=== PATIENT | male | born 1965 | race Caucasian/White ===

== ENCOUNTER 2019-05-13 09:51 | Day surgery (SDC) | payer OTHER ==
[2019-05-12 10:49] LABS: BASOPHILS # (AUTO) 0.06 x10^3/uL (0-0.1); BASOPHILS % (AUTO) 1 % (0-1); EOSINOPHILS # (AUTO) 0.08 x10^3/uL (0-0.4); EOSINOPHILS % (AUTO) 2 % (1-7); LYMPHOCYTES # (AUTO) 1.77 x10^3/uL (1-3.4); LYMPHOCYTES % (AUTO) 36 % (22-44); MD NO; MEAN CORPUSCULAR HEMOGLOBIN 31.5 pg (27.5-34.5); MEAN CORPUSCULAR HGB CONC 33.9 g/dL (33.2-36.2); MEAN CORPUSCULAR VOLUME 93.1 fL (81-97); MONOCYTES # (AUTO) 0.29 x10^3/uL (0.2-0.8); MONOCYTES % (AUTO) 6 % (2-9); NEUTROPHILS # (AUTO) 2.74 x10^3/uL (1.8-6.8); NEUTROPHILS % (AUTO) 56 % (42-75); PLATELET COUNT 306 x10^3/uL (130-400); RED BLOOD COUNT 4.76 x10^6/uL (4.38-5.82); RED CELL DISTRIBUTION WIDTH 13.5 % (9.4-14.8)
[2019-05-12 10:59] LABS: ANION GAP 8 mmol/L (5-15); CALCIUM 9.5 mg/dL (8.5-10.1); CHLORIDE 106 mmol/L (98-107); CREATININE 1.21 mg/dL (0.7-1.3)
[2019-05-12 13:41] LABS: INTERNATIONAL NORMALIZED RATIO 0.93 (0.93-1.1); PROTHROMBIN TIME 9.8 Seconds (9.6-11.5)
[~2019-05-13] VITALS: Ht 182.9 cm; Wt 75.9 kg
[~2019-05-13 09:51] MED LIST: ACETAMINOPHEN 650 MG/20.3 ML UDC PO PRN; BISACODYL 10 MG SUPP PR PRN; CEFAZOLIN 1,000 MG ONE; DIPHENHYDRAMINE 25 MG CAPSULE PO PRN; EPINEPHRINE 1 MG/ML, 1ML ONE; FENTANYL PF 250 MCG/5ML ONE; GLYCOPYRROLATE 0.2MG/1ML, 5ML ONE; HYDROcodone/APAP 5/325 TABLET PO PRN; HYDROmorphone 1 MG/ML, 1ML INJ IV PRN; KETOROLAC 60 MG/2 ML ONE; MAGNESIUM HYDROXIDE 8%, 30ML UDC PO PRN; MIDAZOLAM 1 MG/ML, 2ML ONE; NEOSTIGMINE 1 MG/ML, 10ML ONE; ONDANSETRON 2MG/ML, 2ML IV PRN; ONDANSETRON 4 MG TABLET PO PRN; OXYcodone IR 5MG TABLET PO PRN; PROPOFOL 10 MG/ML, 20ML ONE; ROCURONIUM 10MG/ML,5ML ONE; ROPIvacaine/PF 0.2%, 20 ML ONE; ROPIvacaine/PF 0.5%, 20 ML ONE; SENNA/DOCUSATE TABLET PO PRN; SODIUM CHLORIDE 0.9% 100 ML ONE; TRANEXAMIC ACID 100 MG/ML, 10ML ONE; VANCOMYCIN 1,000 MG ONE; ZOLP10TA PO; ZOLPIDEM 10MG TABLET PO PRN; ZOLPIDEM 5MG TABLET PO PRN
[2019-05-13 10:16] VITALS: BP 110/77
[2019-05-13] MEDS ORDERED: LACTATED RINGERS 1,000 ML IV SCH (10:18)
[2019-05-13] MEDS ORDERED: ACETAMINOPHEN 500 MG TABLET PO ONE (10:30)
[2019-05-13] MEDS ORDERED: GABAPENTIN 300 MG CAPSULE PO ONE (10:30)
[2019-05-13] MEDS ORDERED: TRANEXAMIC ACID 100 MG/ML, 10ML ONE ×2 (10:44)
[2019-05-13] MEDS ORDERED: ACETAMINOPHEN 500 MG TABLET ONE (10:44)
[2019-05-13] MEDS ORDERED: GABAPENTIN 300 MG CAPSULE ONE (10:45)
[2019-05-13] MEDS ORDERED: LABETALOL 5MG/ML, 20ML IV PRN (11:00)
[2019-05-13] MEDS ORDERED: HYDROmorphone 1 MG/ML, 1ML INJ IVPush PRN (11:00)
[2019-05-13] MEDS ORDERED: hydrALAzine 20 MG/ML, 1ML IV PRN (11:00)
[2019-05-13] MEDS ORDERED: FENTANYL PF 100 MCG/2ML IV PRN (11:00)
[2019-05-13] MEDS ORDERED: MORPHINE SULFATE 4 MG/ML, 1ML IVPush PRN (11:00)
[2019-05-13] MEDS ORDERED: MEPERIDINE/PF 25MG/ML,1ML IVPush PRN (11:00)
[2019-05-13] MEDS ORDERED: OXYcodone 5 MG/5 ML ORAL.SOL UDC PO PRN (11:00)
[2019-05-13] MEDS ORDERED: ONDANSETRON 2MG/ML, 2ML IV PRN (11:00)
[2019-05-13] MEDS ORDERED: FENTANYL PF 250 MCG/5ML ONE (11:35)
[2019-05-13] MEDS ORDERED: MEPERIDINE/PF 25MG/ML,1ML ONE (12:55)
[2019-05-13] MEDS ORDERED: NS + 20MEQ KCL 1,000 ML IV SCH (14:12)
[2019-05-13] MEDS ORDERED: OXYC5CAP2 PO (17:53)
[2019-05-13] MEDS ORDERED: MELO7.5T31 PO (17:54)
[2019-05-13] MEDS ORDERED: TRAM50TA2 PO (17:54)
[2019-05-13] MEDS ORDERED: ASPIRIN 81 MG TABLET EC PO SCH (18:00)
[2019-05-13] MEDS ORDERED: CEFAZOLIN PMX 2GM/50ML 50 ML IVPB SCH (19:30)
[2019-05-13] MEDS ORDERED: DOCUSATE 100 MG CAPSULE PO SCH (21:00)
[2019-05-14] MEDS ORDERED: DEXAMETHASONE 4 MG/ML, 1ML IVPush SCH (06:00)
== END 2019-05-13 18:30 | disposition home or self-care (01) ==
LOC: OUT 09:51 → 4NE 13:51 → OUT 18:30
PROVIDERS: ATTEND Orthopaedic Surgery
DX: M17.0 Bilateral primary osteoarthritis of knee (principal); M25.762 Osteophyte, left knee; Z79.1 Long term (current) use of non-steroidal anti-inflammatories (NSAID); Z79.01 Long term (current) use of anticoagulants; Z79.899 Other long term (current) drug therapy; Z87.891 Personal history of nicotine dependence; Z98.890 Other specified postprocedural states; Z82.61 Family history of arthritis
CPT/HCPCS: 27447; 36415; 64447; 80048; 83036; 85025; 85610; 85730; 97110; 97161; 97165; C1713; C1776; J0171; J0690; J1885; J2175; J2250; J2704; J2710; J2795; J3010; J3370; J7120; G0378

== ENCOUNTER 2020-02-10 11:32 | Day surgery (SDC) | payer OTHER ==
[~2020-02-10] VITALS: Ht 182.9 cm; Wt 77.8 kg
[~2020-02-10 11:32] MED LIST changes: -CEFAZOLIN 1,000 MG ONE; +DOCUSATE 100 MG CAPSULE PO SCH; -FENTANYL PF 250 MCG/5ML ONE; -GLYCOPYRROLATE 0.2MG/1ML, 5ML ONE; +MELO7.5T31 PO; -MIDAZOLAM 1 MG/ML, 2ML ONE; -NEOSTIGMINE 1 MG/ML, 10ML ONE; +NS + 20MEQ KCL 1,000 ML IV SCH; +OXYC5CAP2 PO; -PROPOFOL 10 MG/ML, 20ML ONE; -ROCURONIUM 10MG/ML,5ML ONE; -ROPIvacaine/PF 0.2%, 20 ML ONE; -SODIUM CHLORIDE 0.9% 100 ML ONE; +SODIUM CHLORIDE 0.9% 50 ML ONE; +TRAM50TA2 PO
[2020-02-10] MEDS ORDERED: LACTATED RINGERS 1,000 ML IV SCH (12:00)
[2020-02-10] MEDS ORDERED: CHLORHEXIDINE 15 ML UDC MM ONE (12:00)
[2020-02-10] MEDS ORDERED: ACETAMINOPHEN 500 MG TABLET ONE (12:02)
[2020-02-10] MEDS ORDERED: CHLORHEXIDINE 15 ML UDC ONE (12:03)
[2020-02-10] MEDS ORDERED: GABAPENTIN 300 MG CAPSULE ONE (12:03)
[2020-02-10] MEDS ORDERED: FENTANYL PF 100 MCG/2ML ONE ×3 (12:47→15:31)
[2020-02-10] MEDS ORDERED: ACETAMINOPHEN 500 MG TABLET PO ONE (13:00)
[2020-02-10] MEDS ORDERED: GABAPENTIN 300 MG CAPSULE PO ONE (13:00)
[2020-02-10] MEDS ORDERED: ONDANSETRON 2MG/ML, 2ML ONE (13:52)
[2020-02-10] MEDS ORDERED: DEXAMETHASONE 4 MG/ML, 1ML ONE (13:52)
[2020-02-10] MEDS ORDERED: PROPOFOL 10 MG/ML, 20ML ONE (13:52)
[2020-02-10] MEDS ORDERED: CEFAZOLIN 1,000 MG ONE (13:52)
[2020-02-10] MEDS ORDERED: ROPIvacaine/PF 0.5%, 30 ML ONE (14:30)
[2020-02-10] MEDS ORDERED: VANCOMYCIN 1,000 MG ONE (14:39)
[2020-02-10] MEDS ORDERED: MEPERIDINE/PF 25MG/ML,1ML ONE (15:10)
[2020-02-10] MEDS ORDERED: PROMETHAZINE 25 MG/ML, 1ML IVPush PRN (15:30)
[2020-02-10] MEDS ORDERED: OXYcodone 5 MG/5 ML ORAL.SOL UDC PO PRN (15:30)
[2020-02-10] MEDS ORDERED: MEPERIDINE/PF 25MG/0.5ML IVPush PRN (15:30)
[2020-02-10] MEDS: FENTANYL PF 100 MCG/2ML IV PRN ×4 (15:34→15:51)
[2020-02-10] MEDS ORDERED: HYDROmorphone 1 MG/ML, 1ML INJ ONE (15:50)
[2020-02-10] MEDS: HYDROmorphone 1 MG/ML, 1ML INJ IVPush PRN ×2 (16:00→16:08)
[2020-02-10] MEDS ORDERED: MIDAZOLAM 1 MG/ML, 2ML ONE (17:14)
[2020-02-10] MEDS ORDERED: OXYC5CAP2 PO (17:57)
[2020-02-10] MEDS ORDERED: TRAM50TA2 PO (17:58)
[2020-02-10] MEDS ORDERED: MELO7.5T31 PO (17:59)
[2020-02-10] MEDS ORDERED: ASPIRIN 81 MG TABLET EC PO SCH (18:00)
[2020-02-10] MEDS ORDERED: CEFAZOLIN PMX 2GM/50ML 50 ML IVPB SCH (18:00)
[2020-02-10 19:19] VITALS: BP 129/78
[2020-02-11] MEDS ORDERED: CEFAZOLIN PMX 2GM/50ML 50 ML IVPB SCH (02:00)
[2020-02-11] MEDS ORDERED: DEXAMETHASONE 4 MG/ML, 1ML IVPush SCH (06:00)
== END 2020-02-10 19:50 | disposition home or self-care (01) ==
LOC: OUT 11:32 → 2NW 17:22 → OUT 19:50
PROVIDERS: ATTEND Orthopaedic Surgery
DX: M17.11 Unilateral primary osteoarthritis, right knee (principal); F12.90 Cannabis use, unspecified, uncomplicated; Z79.899 Other long term (current) drug therapy; Z98.890 Other specified postprocedural states; Z72.89 Other problems related to lifestyle; Z87.891 Personal history of nicotine dependence
CPT/HCPCS: 27447; 64447; C1713; C1776; J0171; J0690; J1100; J1170; J1885; J2175; J2250; J2405; J2704; J2795; J3010; J3370; G0378